=== PATIENT | male | born 1940 | race African-American/Black ===

== ENCOUNTER 2018-06-30 15:12 | Inpatient (IN) | payer MEDICARE ==
[~2018-06-30] VITALS: Ht 167.6 cm; Wt 67.6 kg
[2018-06-30] MEDS ORDERED: LORAZEPAM 2MG/ML CPJ ONE (15:24)
[2018-06-30 15:44] LABS: BASOPHILS % 0.3 % (0.0-2.0); EOSINOPHILS % 0.2 % (0.0-5.0); HEMATOCRIT. 43.5 % (42.0-52.0); HEMOGLOBIN. 14.7 g/dL (14.0-18.0); LYMPHOCYTES % 15.1 % (20.0-50.0); MEAN CORPUSCULAR HEMOGLOBIN 31.7 pg (28.0-32.0); MEAN PLATELET VOLUME 7.7 fl (7.4-10.4); MONOCYTES % 11.8 % (2.0-8.0); NEUTROPHILS % 72.6 % (40.0-76.0); PLATELET 219 x1000/uL (130-400); RED BLOOD CELL COUNT 4.62 mill/uL (4.7-6.1)
[2018-06-30] MEDS ORDERED: LORAZEPAM 2MG/ML CPJ IV ONE (15:45)
[2018-06-30] MEDS ORDERED: LEVETIRACETAM 1000MG/100ML 100 ML IV ONE (15:45)
[2018-06-30 15:50] LABS: CHLORIDE 111 mEq/L (98-107)
[2018-06-30 15:54] LABS: ETHANOL BLOOD < 10 mg/dL
[2018-06-30 15:57] LABS: INR 1.1; LDL CHOLESTEROL 109 mg/dL (5-100)
[2018-06-30] MEDS ORDERED: HYDR12.54 MT (16:50)
[2018-06-30] MEDS ORDERED: AMLO10TA80 MT (16:50)
[2018-06-30] MEDS ORDERED: SIMV20TA6 MT (16:50)
[2018-06-30] MEDS ORDERED: HUM100IN SQ (16:50)
[2018-06-30] MEDS ORDERED: LISI40TA4 MT (16:50)
[2018-06-30] MEDS ORDERED: IOHEXOL-350 100 ML BOTTLE ONE (16:54)
[2018-06-30] MEDS ORDERED: ASPIRIN 300MG SUPP PR ONE (18:15)
[2018-06-30] MEDS ORDERED: SODIUM CHLORIDE 0.9% 1,000 ML IV NR (19:15)
[2018-06-30] MEDS ORDERED: HYDROCODONE/ACETAMINOPHEN 5/325MG TABLET PO PRN (20:30)
[2018-06-30] MEDS ORDERED: ONDANSETRON HCL 4MG/2ML INJ IV PRN (20:30)
[2018-06-30] MEDS ORDERED: ACETAMINOPHEN 325MG TABLET PO PRN (20:30)
[2018-06-30 21:16] LABS: CLARITY URINE CLEAR (CLEAR); COLOR URINE YELLOW (YELLOW); KETONES URINE TRACE (NEGATIVE); LEUKOCYTE ESTERASE URINE NEGATIVE (NEGATIVE); NITRITE URINE NEGATIVE (NEGATIVE); OCCULT BLOOD URINE NEGATIVE (NEGATIVE); PROTEIN URINE TRACE (NEGATIVE)
[2018-06-30 21:25] LABS: *AMPHETAMINES SCREEN URINE NEGATIVE (NEGATIVE); *BARBITURATES SCREEN URINE NEGATIVE (NEGATIVE); *BENZODIAZEPINES SCREEN URINE NEGATIVE (NEGATIVE)
[2018-06-30 21:26] LABS: *COCAINE SCREEN URINE NEGATIVE (NEGATIVE); CANNABINOID URINE SCREEN NEGATIVE (NEGATIVE); METHADONE URINE SCREEN NEGATIVE (NEGATIVE); OPIATES URINE SCREEN NEGATIVE (NEGATIVE); PHENCYCLIDINE URINE SCREEN NEGATIVE (NEGATIVE)
[2018-07-01] VITALS (7 sets, daily range): BP systolic 168–189; BP diastolic 65–81
[2018-07-01 00:34] LABS: CREATINE KINASE 481 IU/L (39-308)
[2018-07-01] MEDS: DEXT 5%/0.45% NACL 1000ML 1,000 ML IV SCH ×2 (04:28→18:01)
[2018-07-01] MEDS: LORAZEPAM 2MG/ML CPJ IV PRN ×2 (05:18→15:17)
[2018-07-01 07:04] LABS: BASOPHILS % 0.3 % (0.0-2.0); EOSINOPHILS % 0.4 % (0.0-5.0); HEMATOCRIT. 38.8 % (42.0-52.0); HEMOGLOBIN. 13.2 g/dL (14.0-18.0); LYMPHOCYTES % 12.6 % (20.0-50.0); MEAN CORPUSCULAR VOLUME 93.8 fL (80.0-94.0); MEAN PLATELET VOLUME 7.8 fl (7.4-10.4); MONOCYTES % 12.7 % (2.0-8.0); PLATELET 175 x1000/uL (130-400); RED BLOOD CELL COUNT 4.13 mill/uL (4.7-6.1); RED CELL DISTRIBUTION WIDTH 13.7 % (11.6-14.6)
[2018-07-01 08:02] LABS: CHLORIDE 113 mEq/L (98-107)
[2018-07-01 08:22] LABS: LDL CHOLESTEROL 101 mg/dL (5-100)
[2018-07-01 08:23] LABS: CREATINE KINASE 392 IU/L (39-308); HDL CHOLESTEROL 48 mg/dL (40-59)
[2018-07-01] MEDS: LEVETIRACETAM 500 MG in SODIUM CHLORIDE 0.9% 100 ML IV SCH ×2 (12:56→22:04)
[2018-07-01] MEDS ORDERED: DEXTROSE 50% WATER 50ML SYRINGE IV PRN (14:15)
[2018-07-01] MEDS: BLOOD SUGAR DIAGNOSTIC STRIP TEST SCH ×2 (16:45→21:00)
[2018-07-01] MEDS: INSULIN LISPRO 100 UNITS/ML SUBCUT SCH ×2 (17:15→21:00)
[2018-07-01] MEDS: ENOXAPARIN 30MG/0.3ML SYR SUBCUT SCH (22:04)
[2018-07-02] VITALS: BP 179/94
[2018-07-02 04:00] VITALS: BP 151/87
[2018-07-02] MEDS: BLOOD SUGAR DIAGNOSTIC STRIP TEST SCH ×4 (07:13→21:00)
[2018-07-02] MEDS: INSULIN LISPRO 100 UNITS/ML SUBCUT SCH ×4 (07:13→21:00)
[2018-07-02 08:00] VITALS: BP 200/88
[2018-07-02 09:44] LABS: VITAMIN B12 SERUM 524 pg/mL (211-911)
[2018-07-02] MEDS ORDERED: CLONIDINE HCL 0.1MG/24HR PATCH TD SCH (10:00)
[2018-07-02] MEDS: LEVETIRACETAM 500 MG in SODIUM CHLORIDE 0.9% 100 ML IV SCH ×2 (10:06→23:13)
[2018-07-02 12:00] VITALS: BP_SYST 107; BP_SYST 197; BP_DIAS 53; BP_DIAS 80
[2018-07-02] MEDS: HYDRALAZINE 20MG/ML VIAL IV PRN ×2 (12:52→19:14)
[2018-07-02] MEDS: DEXT 5%/0.45% NACL 1000ML 1,000 ML IV SCH ×2 (12:59→23:02)
[2018-07-02 16:00] VITALS: BP 172/81
[2018-07-02] MEDS: ENALAPRIL 1.25MG/ML VIAL 1ML IV SCH ×3 (17:04→23:34)
[2018-07-02 20:00] VITALS: BP 178/74
[2018-07-02] MEDS: ENOXAPARIN 30MG/0.3ML SYR SUBCUT SCH (23:35)
[2018-07-03] VITALS: BP 186/88
[2018-07-03 04:00] VITALS: BP 182/80
[2018-07-03] MEDS: ENALAPRIL 1.25MG/ML VIAL 1ML IV SCH ×3 (05:38→18:58)
[2018-07-03] MEDS: BLOOD SUGAR DIAGNOSTIC STRIP TEST SCH ×4 (05:40→21:32)
[2018-07-03] MEDS: INSULIN LISPRO 100 UNITS/ML SUBCUT SCH ×4 (05:45→21:47)
[2018-07-03] MEDS: LEVETIRACETAM 500 MG in SODIUM CHLORIDE 0.9% 100 ML IV SCH ×2 (10:10→21:31)
[2018-07-03] MEDS: HYDRALAZINE 20MG/ML VIAL IV PRN ×3 (10:11→22:42)
[2018-07-03 12:00] VITALS: BP 166/71
[2018-07-03] MEDS: ASPIRIN 81MG TABLET PO SCH (15:00)
[2018-07-03] MEDS: FAMOTIDINE 20MG TABLET PO SCH (15:10)
[2018-07-03 16:00] VITALS: BP 182/80
[2018-07-03] MEDS: DEXT 5%/0.45% NACL 1000ML 1,000 ML IV SCH (16:36)
[2018-07-03 20:00] VITALS: BP 178/71
[2018-07-03] MEDS: ENOXAPARIN 30MG/0.3ML SYR SUBCUT SCH (21:32)
[2018-07-04] VITALS: BP 161/64
[2018-07-04] MEDS: ENALAPRIL 1.25MG/ML VIAL 1ML IV SCH ×3 (00:53→13:01)
[2018-07-04 04:00] VITALS: BP 181/77
[2018-07-04] MEDS: INSULIN LISPRO 100 UNITS/ML SUBCUT SCH ×4 (06:29→21:00)
[2018-07-04] MEDS: BLOOD SUGAR DIAGNOSTIC STRIP TEST SCH ×4 (06:30→21:27)
[2018-07-04 07:49] LABS: BASOPHILS % 0.4 % (0.0-2.0); EOSINOPHILS % 0.2 % (0.0-5.0); HEMATOCRIT. 37.9 % (42.0-52.0); HEMOGLOBIN. 13.1 g/dL (14.0-18.0); LYMPHOCYTES % 9.5 % (20.0-50.0); MEAN CORPUSCULAR HEMOGLOBIN 32.1 pg (28.0-32.0); MEAN CORPUSCULAR VOLUME 92.5 fL (80.0-94.0); MEAN PLATELET VOLUME 7.3 fl (7.4-10.4); MONOCYTES % 11.1 % (2.0-8.0); NEUTROPHILS % 78.8 % (40.0-76.0); PLATELET 190 x1000/uL (130-400); RED CELL DISTRIBUTION WIDTH 13.8 % (11.6-14.6)
[2018-07-04 08:00] VITALS: BP 192/79
[2018-07-04 08:13] LABS: CHLORIDE 108 mEq/L (98-107)
[2018-07-04] MEDS: FAMOTIDINE 20MG TABLET PO SCH (09:33)
[2018-07-04] MEDS: LEVETIRACETAM 500 MG in SODIUM CHLORIDE 0.9% 100 ML IV SCH ×2 (09:33→21:44)
[2018-07-04] MEDS: ASPIRIN 81MG TABLET PO SCH (09:33)
[2018-07-04] MEDS: HYDRALAZINE 20MG/ML VIAL IV PRN (09:37)
[2018-07-04 12:00] VITALS: BP 187/74
[2018-07-04] MEDS: DEXT 5%/0.45% NACL 1000ML 1,000 ML IV SCH (13:03)
[2018-07-04 14:16] LABS: BG BASE EXCESS 1.7 mmol/L (-2.0-2.0); BG CARBOXYHEMOGLOBIN 0.7 % (0.5-1.5); BG DEOXYHEMOGLOBIN 3.1 % (0.0-5.0); BG FRACTION INSPIRED OXYGEN 21; BG HCO3 ACT 24.8 mmol/L (22.0-26.0); BG METHEMOGLOBIN 0.3 % (0.0-1.5); BG OXYGEN SATURATION 96.9 % (92.0-98.5); BG OXYHEMOGLOBIN 95.9 % (94.0-97.0); BG PCO2 34.6 mmHg (35.0-45.0); BG PH 7.474 (7.350-7.450); BG PO2 93.3 mmHg (75.0-100.0); BG SAMPLE SITE RIGHT BRACHIAL; BG TOTAL HEMOGLOBIN 13.7 g/dL (12.0-18.0); BG VENT MODE ROOM AIR
[2018-07-04 16:00] VITALS: BP 178/72
[2018-07-04] MEDS ORDERED: CEFAZOLIN 1000MG PREMIX 50 ML IV PRN (16:53)
[2018-07-04] MEDS: CLONIDINE 0.1MG TABLET PO SCH ×2 (19:36→21:45)
[2018-07-04 20:00] VITALS: BP 189/85
[2018-07-04] MEDS: PANTOPRAZOLE SODIUM 40 MG/VIAL IV SCH (21:46)
[2018-07-05] VITALS (7 sets, daily range): BP systolic 114–188; BP diastolic 71–88
[2018-07-05] MEDS: CLONIDINE 0.1MG TABLET PO SCH ×3 (05:47→21:57)
[2018-07-05] MEDS: BLOOD SUGAR DIAGNOSTIC STRIP TEST SCH ×4 (05:48→21:56)
[2018-07-05] MEDS: INSULIN LISPRO 100 UNITS/ML SUBCUT SCH ×4 (06:52→21:00)
[2018-07-05 07:12] LABS: INR 1.1; PARTIAL THROMBOPLASTIN TIME 42.3 sec (23.4-31.0); PROTHROMBIN TIME 10.7 sec (9.1-11.1)
[2018-07-05 07:40] LABS: BASOPHILS % 0.3 % (0.0-2.0); EOSINOPHILS % 0.8 % (0.0-5.0); HEMATOCRIT. 38.1 % (42.0-52.0); HEMOGLOBIN. 13.3 g/dL (14.0-18.0); MEAN PLATELET VOLUME 8.1 fl (7.4-10.4); MONOCYTES % 11.4 % (2.0-8.0); NEUTROPHILS % 76.5 % (40.0-76.0); PLATELET 188 x1000/uL (130-400); RED BLOOD CELL COUNT 4.14 mill/uL (4.7-6.1); RED CELL DISTRIBUTION WIDTH 13.6 % (11.6-14.6)
[2018-07-05] MEDS: PANTOPRAZOLE SODIUM 40 MG/VIAL IV SCH ×2 (09:17→21:34)
[2018-07-05] MEDS: LEVETIRACETAM 500 MG in SODIUM CHLORIDE 0.9% 100 ML IV SCH ×2 (09:17→21:56)
[2018-07-05] MEDS: FAMOTIDINE 20MG TABLET PO SCH (09:17)
[2018-07-05 11:52] LABS: CHLORIDE 107 mEq/L (98-107)
[2018-07-05 13:12] LABS: VITAMIN B12 SERUM 463 pg/mL (211-911)
[2018-07-05] MEDS ORDERED: LACTULOSE 20G/30ML UDC PO NR (15:00)
[2018-07-05] MEDS: ATORVASTATIN CALCIUM 10MG TABLET PO SCH (21:00)
[2018-07-05] MEDS: HYDRALAZINE 20MG/ML VIAL IV PRN (21:34)
[2018-07-05] MEDS: DEXT 5%/0.45% NACL 1000ML 1,000 ML IV SCH (21:35)
[2018-07-06] VITALS (8 sets, daily range): BP systolic 140–183; BP diastolic 67–81
[2018-07-06] MEDS: HYDRALAZINE 20MG/ML VIAL IV PRN ×2 (04:34→21:01)
[2018-07-06] MEDS: CLONIDINE 0.1MG TABLET PO SCH ×3 (06:00→22:00)
[2018-07-06 06:22] LABS: HEMATOCRIT 39.4 % (42.0-52.0); HEMOGLOBIN 13.6 g/dL (14.0-18.0); MEAN CORPUSCULAR HEMOGLOBIN 32.1 pg (28.0-32.0); MEAN CORPUSCULAR VOLUME 92.9 fL (80.0-94.0); PLATELET 184 x1000/uL (130-400); RED BLOOD CELL COUNT 4.24 mill/uL (4.7-6.1); RED CELL DISTRIBUTION WIDTH 13.6 % (11.6-14.6)
[2018-07-06] MEDS: BLOOD SUGAR DIAGNOSTIC STRIP TEST SCH ×4 (06:28→21:07)
[2018-07-06] MEDS: DEXT 5%/0.45% NACL 1000ML 1,000 ML IV SCH (06:28)
[2018-07-06] MEDS: INSULIN LISPRO 100 UNITS/ML SUBCUT SCH ×4 (06:28→21:00)
[2018-07-06 06:54] LABS: CHLORIDE 108 mEq/L (98-107)
[2018-07-06] MEDS: FAMOTIDINE 20MG TABLET PO SCH (09:00)
[2018-07-06] MEDS: LEVETIRACETAM 500 MG in SODIUM CHLORIDE 0.9% 100 ML IV SCH ×2 (09:28→21:19)
[2018-07-06] MEDS ORDERED: CEFAZOLIN 1000MG PREMIX 50 ML IV PRN (13:00)
[2018-07-06] MEDS ORDERED: SIMETHICONE 40 MG/0.6 ML 30ML ONE (16:18)
[2018-07-06] MEDS ORDERED: SODIUM CHLORIDE 0.9% 10ML VIAL ONE (16:18)
[2018-07-06] MEDS ORDERED: MIDAZOLAM HCL 5 MG/5 ML VIAL ONE ×2 (16:46→16:47)
[2018-07-06] MEDS ORDERED: CEFAZOLIN 1000MG PREMIX 50 ML IV ONE (16:46)
[2018-07-06] MEDS ORDERED: FENTANYL CITRATE/PF 50MCG/ML 2ML VIAL ONE (16:47)
[2018-07-06] MEDS ORDERED: MIDAZOLAM HCL 5 MG/5 ML VIAL IV PRN (16:53)
[2018-07-06] MEDS ORDERED: HYDRALAZINE 20MG/ML VIAL IV NR (17:30)
[2018-07-06] MEDS: ATORVASTATIN CALCIUM 10MG TABLET PO SCH (21:00)
[2018-07-07] VITALS: BP 141/89
[2018-07-07] MEDS ORDERED: DIGOXIN 500MCG/2ML AMP IV NR (00:15)
[2018-07-07 04:00] VITALS: BP 164/72
[2018-07-07] MEDS ORDERED: LORAZEPAM 2MG/ML CPJ IV PRN ×2 (05:00→05:45)
[2018-07-07] MEDS ORDERED: ACETAMINOPHEN 650MG SUPP PR PRN ×2 (05:06→13:00)
[2018-07-07] MEDS: CLONIDINE 0.1MG TABLET PO SCH (06:00)
[2018-07-07] MEDS: BLOOD SUGAR DIAGNOSTIC STRIP TEST SCH ×4 (06:21→21:00)
[2018-07-07] MEDS: INSULIN LISPRO 100 UNITS/ML SUBCUT SCH ×4 (06:29→22:40)
[2018-07-07 07:22] LABS: HEMATOCRIT 38.2 % (42.0-52.0); HEMOGLOBIN 13.1 g/dL (14.0-18.0); MEAN CORPUSCULAR HEMOGLOBIN 31.7 pg (28.0-32.0); MEAN CORPUSCULAR VOLUME 92.1 fL (80.0-94.0); PLATELET 196 x1000/uL (130-400); RED BLOOD CELL COUNT 4.14 mill/uL (4.7-6.1); RED CELL DISTRIBUTION WIDTH 13.4 % (11.6-14.6)
[2018-07-07 08:00] VITALS: BP 177/90
[2018-07-07 08:31] LABS: CHLORIDE 109 mEq/L (98-107)
[2018-07-07] MEDS ORDERED: LEVETIRACETAM 500MG/5ML CUP PO SCH (09:00)
[2018-07-07] MEDS: LEVETIRACETAM 750 MG in SODIUM CHLORIDE 0.9% 100 ML IV SCH ×2 (09:38→22:28)
[2018-07-07] MEDS: FAMOTIDINE 20MG TABLET PO SCH (09:38)
[2018-07-07] MEDS ORDERED: SKIN ADHESIVE 0.7 GM EA TOP ONE (12:00)
[2018-07-07] MEDS ORDERED: BUPIVACAINE HCL/PF 0.5% (5MG/ML) 10ML ONE (12:01)
[2018-07-07] MEDS ORDERED: BACITRACIN 50,000 UNITS/VIAL ONE (12:01)
[2018-07-07] MEDS ORDERED: FENTANYL CITRATE/PF 50MCG/ML 2ML VIAL ONE (12:30)
[2018-07-07] MEDS ORDERED: ROCURONIUM BROMIDE 10MG/ML VIAL 5ML IV ONE (12:32)
[2018-07-07] MEDS ORDERED: PROPOFOL 200MG/20ML VIAL IV ONE (12:33)
[2018-07-07] MEDS ORDERED: CEFAZOLIN SODIUM 1000MG/VIAL ONE (13:33)
[2018-07-07] MEDS ORDERED: KETOROLAC 30MG/ML VIAL ONE (13:34)
[2018-07-07] MEDS ORDERED: NEOSTIGMINE METHYLSULFATE 1MG/ML 10 ML VIAL ONE (14:19)
[2018-07-07] MEDS ORDERED: GLYCOPYRROLATE 0.2 MG/ML 2ML VIAL ONE (14:19)
[2018-07-07 18:44] LABS: BG BASE EXCESS -2.9 mmol/L (-2.0-2.0); BG CARBOXYHEMOGLOBIN 0.4 % (0.5-1.5); BG DEOXYHEMOGLOBIN 1.1 % (0.0-5.0); BG FRACTION INSPIRED OXYGEN 50; BG HCO3 ACT 18.7 mmol/L (22.0-26.0); BG METHEMOGLOBIN 0.5 % (0.0-1.5); BG OXYGEN SATURATION 98.9 % (92.0-98.5); BG PCO2 25.7 mmHg (35.0-45.0); BG PO2 170.2 mmHg (75.0-100.0); BG SAMPLE SITE RIGHT RADIAL; BG TOTAL HEMOGLOBIN 15.7 g/dL (12.0-18.0); BG VENT MODE MASK - SIMPLE
[2018-07-07 20:20] VITALS: BP 121/71
[2018-07-07] MEDS ORDERED: FAMOTIDINE 20MG/2ML VIAL IV SCH (21:00)
[2018-07-07] MEDS: IPRATROPIUM/ALBUTEROL 0.5-3(2.5)MG/3ML NEB HHN SCH (21:56)
[2018-07-07 22:00] VITALS: BP 130/72
[2018-07-07] MEDS: DEXT 5%/0.45% NACL KCL 20MEQ/L 1,000 ML IV SCH ×2 (22:28→22:41)
[2018-07-07] MEDS: PIPERACILLIN/TAZ 3.375G PREMIX 50 ML IV SCH (22:29)
[2018-07-07] MEDS: ATORVASTATIN CALCIUM 10MG TABLET PO SCH (22:40)
[2018-07-07] MEDS: FAMOTIDINE 20MG/2ML VIAL IV SCH (22:40)
[2018-07-08] VITALS (9 sets, daily range): BP systolic 92–164; BP diastolic 44–88
[2018-07-08] MEDS: IPRATROPIUM/ALBUTEROL 0.5-3(2.5)MG/3ML NEB HHN SCH ×6 (00:31→20:28)
[2018-07-08] MEDS: MORPHINE SULFATE 4 MG/ML CPJ (NOT FOR IM USE) IV PRN (02:45)
[2018-07-08] MEDS: PIPERACILLIN/TAZ 3.375G PREMIX 50 ML IV SCH ×4 (03:55→21:17)
[2018-07-08] MEDS: CLONIDINE 0.1MG TABLET PO SCH ×3 (07:04→22:19)
[2018-07-08 07:43] LABS: HEMATOCRIT 41.5 % (42.0-52.0); HEMOGLOBIN 14.2 g/dL (14.0-18.0); MEAN CORPUSCULAR HEMOGLOBIN 32.1 pg (28.0-32.0); MEAN CORPUSCULAR VOLUME 93.8 fL (80.0-94.0); PLATELET 215 x1000/uL (130-400); RED BLOOD CELL COUNT 4.42 mill/uL (4.7-6.1); RED CELL DISTRIBUTION WIDTH 13.1 % (11.6-14.6)
[2018-07-08] MEDS: BLOOD SUGAR DIAGNOSTIC STRIP TEST SCH ×3 (07:51→17:41)
[2018-07-08] MEDS: INSULIN LISPRO 100 UNITS/ML SUBCUT SCH ×3 (08:57→17:54)
[2018-07-08] MEDS: ZINC SULFATE 220 MG ( 50 ) CAPSULE GT SCH (09:17)
[2018-07-08] MEDS: MULTIVITAMINS,THER W-MINERALS TABLET GT SCH (09:17)
[2018-07-08] MEDS: LEVETIRACETAM 750 MG in SODIUM CHLORIDE 0.9% 100 ML IV SCH ×2 (09:17→22:22)
[2018-07-08] MEDS: DEXT 5%/0.45% NACL KCL 20MEQ/L 1,000 ML IV SCH (09:18)
[2018-07-08] MEDS: ASCORBIC ACID 250 MG TABLET GT SCH ×2 (09:18→17:54)
[2018-07-08] MEDS ORDERED: SODIUM CHLORIDE 0.9% 250 ML IV ONE (10:30)
[2018-07-08 16:54] LABS: CHLORIDE 109 mEq/L (98-107)
[2018-07-08] MEDS: ATORVASTATIN CALCIUM 10MG TABLET PO SCH (21:17)
[2018-07-08] MEDS: FAMOTIDINE 20MG/2ML VIAL IV SCH (21:17)
[2018-07-09] VITALS (9 sets, daily range): BP systolic 137–181; BP diastolic 66–91
[2018-07-09] MEDS: IPRATROPIUM/ALBUTEROL 0.5-3(2.5)MG/3ML NEB HHN SCH ×6 (00:11→21:13)
[2018-07-09] MEDS: PIPERACILLIN/TAZ 3.375G PREMIX 50 ML IV SCH ×4 (01:17→20:50)
[2018-07-09] MEDS: INSULIN LISPRO 100 UNITS/ML SUBCUT SCH ×4 (01:17→19:12)
[2018-07-09] MEDS: DEXT 5%/0.45% NACL KCL 20MEQ/L 1,000 ML IV SCH ×3 (03:06→16:00)
[2018-07-09 05:48] LABS: HEMOGLOBIN 11.9 g/dL (14.0-18.0); MEAN CORPUSCULAR VOLUME 93.9 fL (80.0-94.0); PLATELET 193 x1000/uL (130-400); RED BLOOD CELL COUNT 3.73 mill/uL (4.7-6.1); RED CELL DISTRIBUTION WIDTH 13.7 % (11.6-14.6)
[2018-07-09 06:04] LABS: CHLORIDE 109 mEq/L (98-107)
[2018-07-09] MEDS: CLONIDINE 0.1MG TABLET PO SCH ×3 (06:12→21:08)
[2018-07-09] MEDS: BLOOD SUGAR DIAGNOSTIC STRIP TEST SCH ×4 (06:12→18:00)
[2018-07-09] MEDS: ASCORBIC ACID 250 MG TABLET GT SCH ×2 (09:25→17:39)
[2018-07-09] MEDS: ZINC SULFATE 220 MG ( 50 ) CAPSULE GT SCH (09:25)
[2018-07-09] MEDS: MULTIVITAMINS,THER W-MINERALS TABLET GT SCH (09:25)
[2018-07-09] MEDS: LEVETIRACETAM 750 MG in SODIUM CHLORIDE 0.9% 100 ML IV SCH ×2 (09:26→20:50)
[2018-07-09] MEDS ORDERED: KCL 20MEQ/100ML PREMIX 100 ML IV NR (16:30)
[2018-07-09] MEDS: METOCLOPRAMIDE HCL 10MG/2ML VIAL IV SCH (17:39)
[2018-07-09] MEDS: HYDRALAZINE 20MG/ML VIAL IV PRN (19:22)
[2018-07-09] MEDS: FAMOTIDINE 20MG/2ML VIAL IV SCH (20:49)
[2018-07-09] MEDS: ATORVASTATIN CALCIUM 10MG TABLET PO SCH (20:49)
[2018-07-10] VITALS (12 sets, daily range): BP systolic 106–193; BP diastolic 31–100
[2018-07-10] MEDS: BLOOD SUGAR DIAGNOSTIC STRIP TEST SCH ×4 (00:57→17:55)
[2018-07-10] MEDS: PIPERACILLIN/TAZ 3.375G PREMIX 50 ML IV SCH ×4 (01:01→20:33)
[2018-07-10] MEDS: METOCLOPRAMIDE HCL 10MG/2ML VIAL IV SCH ×4 (01:01→17:55)
[2018-07-10] MEDS: DEXT 5%/0.45% NACL KCL 20MEQ/L 1,000 ML IV SCH ×3 (01:02→22:22)
[2018-07-10] MEDS: IPRATROPIUM/ALBUTEROL 0.5-3(2.5)MG/3ML NEB HHN SCH ×6 (01:40→20:31)
[2018-07-10] MEDS: MORPHINE SULFATE 4 MG/ML CPJ (NOT FOR IM USE) IV PRN (02:46)
[2018-07-10] MEDS: CLONIDINE 0.1MG TABLET PO SCH ×3 (06:13→22:22)
[2018-07-10] MEDS: INSULIN LISPRO 100 UNITS/ML SUBCUT SCH ×4 (06:14→19:06)
[2018-07-10] MEDS: ASCORBIC ACID 250 MG TABLET GT SCH ×2 (09:49→17:55)
[2018-07-10] MEDS: ZINC SULFATE 220 MG ( 50 ) CAPSULE GT SCH (09:49)
[2018-07-10] MEDS: LEVETIRACETAM 750 MG in SODIUM CHLORIDE 0.9% 100 ML IV SCH (09:49)
[2018-07-10] MEDS: MULTIVITAMINS,THER W-MINERALS TABLET GT SCH (09:49)
[2018-07-10] MEDS: ATORVASTATIN CALCIUM 10MG TABLET PO SCH (20:34)
[2018-07-10] MEDS: HYDRALAZINE 20MG/ML VIAL IV PRN (20:34)
[2018-07-10] MEDS: FAMOTIDINE 20MG/2ML VIAL IV SCH (20:34)
[2018-07-10] MEDS: LEVETIRACETAM 500MG/5ML CUP PO SCH (20:34)
[2018-07-11] VITALS (12 sets, daily range): BP systolic 98–173; BP diastolic 52–117
[2018-07-11] MEDS: BLOOD SUGAR DIAGNOSTIC STRIP TEST SCH ×4 (00:12→17:55)
[2018-07-11] MEDS: METOCLOPRAMIDE HCL 10MG/2ML VIAL IV SCH ×4 (00:16→18:05)
[2018-07-11] MEDS: IPRATROPIUM/ALBUTEROL 0.5-3(2.5)MG/3ML NEB HHN SCH ×6 (00:26→20:55)
[2018-07-11] MEDS: PIPERACILLIN/TAZ 3.375G PREMIX 50 ML IV SCH ×2 (01:47→10:32)
[2018-07-11] MEDS: CLONIDINE 0.1MG TABLET PO SCH ×3 (05:28→22:23)
[2018-07-11] MEDS: INSULIN LISPRO 100 UNITS/ML SUBCUT SCH ×4 (05:29→18:11)
[2018-07-11] MEDS: ZINC SULFATE 220 MG ( 50 ) CAPSULE GT SCH (09:56)
[2018-07-11] MEDS: ASCORBIC ACID 250 MG TABLET GT SCH ×2 (09:56→17:48)
[2018-07-11] MEDS: DEXT 5%/0.45% NACL KCL 20MEQ/L 1,000 ML IV SCH (09:57)
[2018-07-11] MEDS: HYDRALAZINE 20MG/ML VIAL IV PRN (10:00)
[2018-07-11] MEDS: MULTIVITAMINS,THER W-MINERALS TABLET GT SCH (10:46)
[2018-07-11] MEDS: LEVETIRACETAM 500MG/5ML CUP PO SCH ×2 (10:46→22:22)
[2018-07-11] MEDS: LEVOFLOXACIN 500MG PREMIX 100 ML IV SCH (14:36)
[2018-07-11 19:50] LABS: HEMATOCRIT. 39.3 % (42.0-52.0); HEMOGLOBIN. 13.4 g/dL (14.0-18.0); MEAN CORPUSCULAR VOLUME 93.7 fL (80.0-94.0); MEAN PLATELET VOLUME 7.6 fl (7.4-10.4); PLATELET 359 x1000/uL (130-400); RED BLOOD CELL COUNT 4.19 mill/uL (4.7-6.1); RED CELL DISTRIBUTION WIDTH 13.8 % (11.6-14.6)
[2018-07-11 19:55] LABS: CHLORIDE 103 mEq/L (98-107)
[2018-07-11 20:13] LABS: PLATELET ESTIMATE NORMAL
[2018-07-11] MEDS: ATORVASTATIN CALCIUM 10MG TABLET PO SCH (22:22)
[2018-07-11] MEDS: FAMOTIDINE 20MG/2ML VIAL IV SCH (22:22)
[2018-07-12] VITALS (7 sets, daily range): BP systolic 149–180; BP diastolic 79–103
[2018-07-12] MEDS: METOCLOPRAMIDE HCL 10MG/2ML VIAL IV SCH ×4 (00:59→18:58)
[2018-07-12] MEDS: INSULIN LISPRO 100 UNITS/ML SUBCUT SCH ×4 (01:00→18:55)
[2018-07-12] MEDS: IPRATROPIUM/ALBUTEROL 0.5-3(2.5)MG/3ML NEB HHN SCH ×3 (01:01→04:35)
[2018-07-12] MEDS: BLOOD SUGAR DIAGNOSTIC STRIP TEST SCH ×4 (05:43→18:47)
[2018-07-12] MEDS: CLONIDINE 0.1MG TABLET PO SCH ×2 (05:49→16:20)
[2018-07-12] MEDS: ASCORBIC ACID 250 MG TABLET GT SCH ×2 (10:21→19:02)
[2018-07-12] MEDS: ZINC SULFATE 220 MG ( 50 ) CAPSULE GT SCH (10:21)
[2018-07-12] MEDS: LEVETIRACETAM 500MG/5ML CUP PO SCH ×2 (10:21→20:24)
[2018-07-12] MEDS: MULTIVITAMINS,THER W-MINERALS TABLET GT SCH (10:21)
[2018-07-12] MEDS: HYDRALAZINE 20MG/ML VIAL IV PRN ×2 (10:31→19:06)
[2018-07-12 12:10] LABS: BG BASE EXCESS -5.8 mmol/L (-2.0-2.0); BG CARBOXYHEMOGLOBIN 0.8 % (0.5-1.5); BG DEOXYHEMOGLOBIN 4.8 % (0.0-5.0); BG HCO3 ACT 14.5 mmol/L (22.0-26.0); BG METHEMOGLOBIN 0.2 % (0.0-1.5); BG OXYGEN SATURATION 95.2 % (92.0-98.5); BG OXYHEMOGLOBIN 94.2 % (94.0-97.0); BG PCO2 18.7 mmHg (35.0-45.0); BG PH 7.508 (7.350-7.450); BG PO2 72.3 mmHg (75.0-100.0); BG SAMPLE SITE RIGHT BRACHIAL; BG TOTAL HEMOGLOBIN 14.1 g/dL (12.0-18.0); BG VENT MODE ROOM AIR
[2018-07-12 15:21] LABS: HEMATOCRIT 37.7 % (42.0-52.0); HEMOGLOBIN 13.2 g/dL (14.0-18.0); MEAN CORPUSCULAR HEMOGLOBIN 32.2 pg (28.0-32.0); MEAN CORPUSCULAR VOLUME 91.9 fL (80.0-94.0); PLATELET 353 x1000/uL (130-400); RED CELL DISTRIBUTION WIDTH 13.9 % (11.6-14.6)
[2018-07-12 15:25] LABS: CHLORIDE 104 mEq/L (98-107)
[2018-07-12] MEDS ORDERED: DEXT 5%/0.45% NACL 1000ML 1,000 ML IV ONE (15:30)
[2018-07-12] MEDS: LEVOFLOXACIN 500MG PREMIX 100 ML IV SCH (16:20)
[2018-07-12] MEDS: FAMOTIDINE 20MG/2ML VIAL IV SCH (20:22)
[2018-07-12] MEDS: ATORVASTATIN CALCIUM 10MG TABLET PO SCH (20:22)
[2018-07-12] MEDS: PIPERACILLIN/TAZ 3.375G PREMIX 50 ML IV SCH (20:23)
[2018-07-13] VITALS: BP 150/60
[2018-07-13] MEDS: METOCLOPRAMIDE HCL 10MG/2ML VIAL IV SCH ×5 (00:05→23:48)
[2018-07-13] MEDS: CLONIDINE 0.1MG TABLET PO SCH ×4 (00:06→21:37)
[2018-07-13] MEDS: BLOOD SUGAR DIAGNOSTIC STRIP TEST SCH ×5 (00:13→21:37)
[2018-07-13] MEDS ORDERED: DILTIAZEM HCL 5MG/ML 5ML VIAL IV SCH (00:57)
[2018-07-13] MEDS ORDERED: DIGOXIN 500MCG/2ML AMP IV SCH ×3 (00:58→03:00)
[2018-07-13] MEDS: DEXT 5%/0.9% NACL 1,000 ML IV SCH ×2 (00:59→11:42)
[2018-07-13] MEDS: PIPERACILLIN/TAZ 3.375G PREMIX 50 ML IV SCH ×4 (01:23→21:29)
[2018-07-13 04:00] VITALS: BP 132/80
[2018-07-13] MEDS: IPRATROPIUM/ALBUTEROL 0.5-3(2.5)MG/3ML NEB HHN SCH ×5 (04:50→20:00)
[2018-07-13] MEDS: INSULIN LISPRO 100 UNITS/ML SUBCUT SCH ×5 (06:10→21:38)
[2018-07-13 06:36] LABS: HEMATOCRIT 36.5 % (42.0-52.0); HEMOGLOBIN 12.6 g/dL (14.0-18.0); MEAN CORPUSCULAR HEMOGLOBIN 31.9 pg (28.0-32.0); MEAN CORPUSCULAR VOLUME 92.4 fL (80.0-94.0); PLATELET 352 x1000/uL (130-400); RED BLOOD CELL COUNT 3.95 mill/uL (4.7-6.1); RED CELL DISTRIBUTION WIDTH 13.7 % (11.6-14.6)
[2018-07-13 08:00] VITALS: BP 123/74
[2018-07-13] MEDS: ASCORBIC ACID 250 MG TABLET GT SCH ×2 (08:58→18:31)
[2018-07-13] MEDS: MULTIVITAMINS,THER W-MINERALS TABLET GT SCH (08:58)
[2018-07-13] MEDS: ZINC SULFATE 220 MG ( 50 ) CAPSULE GT SCH (08:58)
[2018-07-13] MEDS: LEVETIRACETAM 500MG/5ML CUP PO SCH ×2 (08:59→21:29)
[2018-07-13 10:36] LABS: BG BASE EXCESS -3.1 mmol/L (-2.0-2.0); BG CARBOXYHEMOGLOBIN 0.7 % (0.5-1.5); BG DEOXYHEMOGLOBIN 4.4 % (0.0-5.0); BG FRACTION INSPIRED OXYGEN 21; BG HCO3 ACT 18.4 mmol/L (22.0-26.0); BG METHEMOGLOBIN 0.2 % (0.0-1.5); BG OXYGEN SATURATION 95.6 % (92.0-98.5); BG OXYHEMOGLOBIN 94.7 % (94.0-97.0); BG PCO2 23.7 mmHg (35.0-45.0); BG PH 7.508 (7.350-7.450); BG PO2 75.5 mmHg (75.0-100.0); BG SAMPLE SITE RIGHT BRACHIAL; BG VENT MODE ROOM AIR
[2018-07-13] MEDS ORDERED: SODIUM CHLORIDE 0.9% 250 ML IV SCH (12:00)
[2018-07-13 12:02] VITALS: BP 131/71
[2018-07-13] MEDS ORDERED: IPRATROPIUM/ALBUTEROL 0.5-3(2.5)MG/3ML NEB HHN PRN (12:15)
[2018-07-13 16:19] VITALS: BP 117/68
[2018-07-13] MEDS: METHYLPREDNISOLONE SOD SUCC 40 MG/ML VIAL IV SCH (18:31)
[2018-07-13 20:00] VITALS: BP 179/81
[2018-07-13] MEDS: FAMOTIDINE 20MG/2ML VIAL IV SCH (21:29)
[2018-07-13] MEDS: ATORVASTATIN CALCIUM 10MG TABLET PO SCH (21:29)
[2018-07-13] MEDS: HYDRALAZINE 20MG/ML VIAL IV PRN (23:48)
[2018-07-14] VITALS (9 sets, daily range): BP systolic 146–203; BP diastolic 69–95
[2018-07-14] MEDS ORDERED: HYDRALAZINE 20MG/ML VIAL IV NR ×2 (02:00→16:45)
[2018-07-14] MEDS: PIPERACILLIN/TAZ 3.375G PREMIX 50 ML IV SCH ×4 (02:00→20:40)
[2018-07-14] MEDS: METHYLPREDNISOLONE SOD SUCC 40 MG/ML VIAL IV SCH ×2 (03:00→15:19)
[2018-07-14] MEDS: DEXT 5%/0.9% NACL 1,000 ML IV SCH ×2 (03:05→20:44)
[2018-07-14] MEDS: IPRATROPIUM/ALBUTEROL 0.5-3(2.5)MG/3ML NEB HHN SCH ×6 (04:00→20:21)
[2018-07-14] MEDS: CLONIDINE 0.1MG TABLET PO SCH ×3 (06:00→22:26)
[2018-07-14 07:12] LABS: CHLORIDE 111 mEq/L (98-107)
[2018-07-14 07:26] LABS: HEMOGLOBIN 11.8 g/dL (14.0-18.0); MEAN CORPUSCULAR HEMOGLOBIN 32.1 pg (28.0-32.0); MEAN CORPUSCULAR VOLUME 92.4 fL (80.0-94.0); PLATELET 366 x1000/uL (130-400); RED BLOOD CELL COUNT 3.68 mill/uL (4.7-6.1)
[2018-07-14] MEDS: BLOOD SUGAR DIAGNOSTIC STRIP TEST SCH ×4 (07:34→20:40)
[2018-07-14] MEDS: INSULIN LISPRO 100 UNITS/ML SUBCUT SCH ×4 (07:34→20:43)
[2018-07-14] MEDS: MULTIVITAMINS,THER W-MINERALS TABLET GT SCH (09:25)
[2018-07-14] MEDS: ASCORBIC ACID 250 MG TABLET GT SCH ×2 (09:25→17:52)
[2018-07-14] MEDS: METOCLOPRAMIDE HCL 10MG/2ML VIAL IV SCH ×3 (09:25→17:49)
[2018-07-14] MEDS: ZINC SULFATE 220 MG ( 50 ) CAPSULE GT SCH (09:26)
[2018-07-14] MEDS: LEVETIRACETAM 500MG/5ML CUP PO SCH (09:28)
[2018-07-14] MEDS: HYDRALAZINE 20MG/ML VIAL IV PRN (10:06)
[2018-07-14] MEDS ORDERED: METOPROLOL TARTRATE 5MG/5ML VIAL IV SCH (14:00)
[2018-07-14] MEDS: METOPROLOL TARTRATE 5MG/5ML VIAL IV SCH ×2 (15:24→19:34)
[2018-07-14] MEDS ORDERED: METOPROLOL TARTRATE 5MG/5ML VIAL IV NR (19:30)
[2018-07-14] MEDS: LEVETIRACETAM 750 MG in SODIUM CHLORIDE 0.9% 100 ML IV SCH (20:39)
[2018-07-14] MEDS: FAMOTIDINE 20MG/2ML VIAL IV SCH (20:40)
[2018-07-14] MEDS: ATORVASTATIN CALCIUM 10MG TABLET PO SCH (20:40)
[2018-07-14] MEDS: NITROGLYCERIN OINT 1GM/INCH UDPKT TD SCH (22:26)
[2018-07-15] VITALS: BP 174/78
[2018-07-15] MEDS: IPRATROPIUM/ALBUTEROL 0.5-3(2.5)MG/3ML NEB HHN SCH ×6 (00:10→21:39)
[2018-07-15] MEDS: METOCLOPRAMIDE HCL 10MG/2ML VIAL IV SCH ×5 (00:20→23:59)
[2018-07-15] MEDS: ENALAPRIL 2.5MG/2ML VIAL 2ML IV PRN ×2 (00:20→17:15)
[2018-07-15] MEDS: PIPERACILLIN/TAZ 3.375G PREMIX 50 ML IV SCH ×4 (03:08→19:59)
[2018-07-15] MEDS: METOPROLOL TARTRATE 5MG/5ML VIAL IV SCH ×4 (03:09→19:59)
[2018-07-15 04:00] VITALS: BP 152/64
[2018-07-15] MEDS: CLONIDINE 0.1MG TABLET PO SCH ×3 (06:02→21:05)
[2018-07-15] MEDS: NITROGLYCERIN OINT 1GM/INCH UDPKT TD SCH ×4 (06:02→23:59)
[2018-07-15 06:34] LABS: BASOPHILS % 0.2 % (0.0-2.0); EOSINOPHILS % 0.2 % (0.0-5.0); HEMATOCRIT. 31.5 % (42.0-52.0); HEMOGLOBIN. 10.8 g/dL (14.0-18.0); LYMPHOCYTES % 7.5 % (20.0-50.0); MEAN CORPUSCULAR HEMOGLOBIN 31.7 pg (28.0-32.0); MEAN CORPUSCULAR VOLUME 92.1 fL (80.0-94.0); MEAN PLATELET VOLUME 7.3 fl (7.4-10.4); NEUTROPHILS % 81.1 % (40.0-76.0); PLATELET 350 x1000/uL (130-400); RED BLOOD CELL COUNT 3.42 mill/uL (4.7-6.1); RED CELL DISTRIBUTION WIDTH 14.2 % (11.6-14.6)
[2018-07-15 06:40] LABS: CHLORIDE 115 mEq/L (98-107)
[2018-07-15] MEDS: INSULIN LISPRO 100 UNITS/ML SUBCUT SCH ×4 (07:07→21:08)
[2018-07-15] MEDS: HYDRALAZINE 20MG/ML VIAL IV PRN ×2 (07:08→18:42)
[2018-07-15] MEDS: BLOOD SUGAR DIAGNOSTIC STRIP TEST SCH ×4 (07:08→21:05)
[2018-07-15 08:00] VITALS: BP 178/72
[2018-07-15] MEDS: ZINC SULFATE 220 MG ( 50 ) CAPSULE GT SCH (08:12)
[2018-07-15] MEDS: MULTIVITAMINS,THER W-MINERALS TABLET GT SCH (08:12)
[2018-07-15] MEDS: ASCORBIC ACID 250 MG TABLET GT SCH ×2 (08:13→17:16)
[2018-07-15] MEDS ORDERED: METHYLPREDNISOLONE SOD SUCC 40 MG/ML VIAL IV SCH (09:00)
[2018-07-15] MEDS: LEVETIRACETAM 750 MG in SODIUM CHLORIDE 0.9% 100 ML IV SCH ×2 (09:29→21:05)
[2018-07-15] MEDS ORDERED: KCL 20MEQ/100ML PREMIX 100 ML IV SCH (10:00)
[2018-07-15] MEDS ORDERED: HYDRALAZINE HCL 50MG TABLET PO NR (11:30)
[2018-07-15] MEDS: DEXT 5%/0.45% NACL 1000ML 1,000 ML IV SCH (12:43)
[2018-07-15] MEDS: HYDRALAZINE HCL 50MG TABLET PO SCH ×2 (17:16→22:35)
[2018-07-15] MEDS ORDERED: LACTULOSE 20G/30ML UDC PO PRN (19:45)
[2018-07-15] MEDS ORDERED: LACTULOSE 20G/30ML UDC PO SCH (19:45)
[2018-07-15] MEDS ORDERED: BISACODYL 10MG SUPP PR NR (19:45)
[2018-07-15 20:00] VITALS: BP 183/84
[2018-07-15] MEDS: ATORVASTATIN CALCIUM 10MG TABLET PO SCH (21:05)
[2018-07-15] MEDS: FAMOTIDINE 20MG/2ML VIAL IV SCH (21:05)
[2018-07-16] VITALS: BP 187/84
[2018-07-16] MEDS: IPRATROPIUM/ALBUTEROL 0.5-3(2.5)MG/3ML NEB HHN SCH ×6 (00:55→21:23)
[2018-07-16] MEDS: PIPERACILLIN/TAZ 3.375G PREMIX 50 ML IV SCH ×4 (01:56→22:01)
[2018-07-16] MEDS: METOPROLOL TARTRATE 5MG/5ML VIAL IV SCH ×4 (01:56→20:42)
[2018-07-16 04:00] VITALS: BP 198/90
[2018-07-16] MEDS: ENALAPRIL 2.5MG/2ML VIAL 2ML IV PRN (04:37)
[2018-07-16] MEDS: CLONIDINE 0.1MG TABLET PO SCH ×3 (05:36→22:01)
[2018-07-16] MEDS: HYDRALAZINE HCL 50MG TABLET PO SCH (05:36)
[2018-07-16] MEDS: METOCLOPRAMIDE HCL 10MG/2ML VIAL IV SCH ×3 (05:36→20:22)
[2018-07-16] MEDS: NITROGLYCERIN OINT 1GM/INCH UDPKT TD SCH ×3 (05:37→20:22)
[2018-07-16] MEDS: BLOOD SUGAR DIAGNOSTIC STRIP TEST SCH ×4 (06:19→20:42)
[2018-07-16] MEDS: INSULIN LISPRO 100 UNITS/ML SUBCUT SCH ×4 (06:19→20:43)
[2018-07-16 07:07] LABS: BASOPHILS % 0.1 % (0.0-2.0); EOSINOPHILS % 0.8 % (0.0-5.0); HEMATOCRIT. 34.8 % (42.0-52.0); HEMOGLOBIN. 11.9 g/dL (14.0-18.0); LYMPHOCYTES % 8.4 % (20.0-50.0); MEAN CORPUSCULAR HEMOGLOBIN 31.5 pg (28.0-32.0); MEAN CORPUSCULAR VOLUME 92.6 fL (80.0-94.0); MEAN PLATELET VOLUME 7.4 fl (7.4-10.4); NEUTROPHILS % 80.7 % (40.0-76.0); PLATELET 405 x1000/uL (130-400); RED BLOOD CELL COUNT 3.76 mill/uL (4.7-6.1); RED CELL DISTRIBUTION WIDTH 14.4 % (11.6-14.6)
[2018-07-16 07:21] LABS: CHLORIDE 111 mEq/L (98-107)
[2018-07-16 08:00] VITALS: BP 163/85
[2018-07-16] MEDS: MULTIVITAMINS,THER W-MINERALS TABLET GT SCH (09:43)
[2018-07-16] MEDS: ZINC SULFATE 220 MG ( 50 ) CAPSULE GT SCH (09:43)
[2018-07-16] MEDS: ASCORBIC ACID 250 MG TABLET GT SCH ×2 (09:43→17:40)
[2018-07-16] MEDS: LEVETIRACETAM 750 MG in SODIUM CHLORIDE 0.9% 100 ML IV SCH ×2 (09:55→20:31)
[2018-07-16 12:25] VITALS: BP 140/73
[2018-07-16] MEDS ORDERED: LACTULOSE 20G/30ML UDC PO NR (14:30)
[2018-07-16 14:37] LABS: BG CARBOXYHEMOGLOBIN 0.3 % (0.5-1.5); BG DEOXYHEMOGLOBIN 3.8 % (0.0-5.0); BG HCO3 ACT 17.8 mmol/L (22.0-26.0); BG METHEMOGLOBIN 0.3 % (0.0-1.5); BG OXYGEN SATURATION 96.2 % (92.0-98.5); BG OXYHEMOGLOBIN 95.6 % (94.0-97.0); BG PCO2 23.9 mmHg (35.0-45.0); BG PO2 84.8 mmHg (75.0-100.0); BG SAMPLE SITE RIGHT BRACHIAL; BG TOTAL HEMOGLOBIN 11.6 g/dL (12.0-18.0); BG VENT MODE ROOM AIR
[2018-07-16] MEDS: HYDRALAZINE HCL 100MG TABLET PO SCH ×2 (14:55→22:01)
[2018-07-16 16:00] VITALS: BP 181/89
[2018-07-16] MEDS ORDERED: LACTULOSE 20G/30ML UDC PO PRN (16:45)
[2018-07-16] MEDS: ONDANSETRON HCL 4MG/2ML INJ IV PRN (17:41)
[2018-07-16] MEDS: ENOXAPARIN 40MG/0.4ML SYR SUBCUT SCH (18:00)
[2018-07-16 20:00] VITALS: BP 149/74
[2018-07-16] MEDS: ATORVASTATIN CALCIUM 10MG TABLET PO SCH (20:42)
[2018-07-16] MEDS: FAMOTIDINE 20MG/2ML VIAL IV SCH (20:42)
[2018-07-17] VITALS: BP 166/86
[2018-07-17] MEDS: METOCLOPRAMIDE HCL 10MG/2ML VIAL IV SCH ×4 (01:25→17:16)
[2018-07-17] MEDS: NITROGLYCERIN OINT 1GM/INCH UDPKT TD SCH ×4 (01:26→17:22)
[2018-07-17] MEDS: IPRATROPIUM/ALBUTEROL 0.5-3(2.5)MG/3ML NEB HHN SCH ×6 (01:54→21:10)
[2018-07-17] MEDS: ONDANSETRON HCL 4MG/2ML INJ IV PRN (02:31)
[2018-07-17] MEDS: PIPERACILLIN/TAZ 3.375G PREMIX 50 ML IV SCH ×4 (02:32→21:33)
[2018-07-17] MEDS: METOPROLOL TARTRATE 5MG/5ML VIAL IV SCH ×2 (02:32→08:35)
[2018-07-17 04:00] VITALS: BP 176/79
[2018-07-17] MEDS: DEXT 5%/0.45% NACL 1000ML 1,000 ML IV SCH (04:12)
[2018-07-17] MEDS: HYDRALAZINE HCL 100MG TABLET PO SCH ×3 (05:13→21:33)
[2018-07-17] MEDS: CLONIDINE 0.1MG TABLET PO SCH ×3 (05:13→21:33)
[2018-07-17] MEDS: INSULIN LISPRO 100 UNITS/ML SUBCUT SCH ×4 (05:49→21:00)
[2018-07-17] MEDS: BLOOD SUGAR DIAGNOSTIC STRIP TEST SCH ×4 (05:49→21:28)
[2018-07-17 07:17] LABS: HEMATOCRIT 35.9 % (42.0-52.0); HEMOGLOBIN 12.2 g/dL (14.0-18.0); MEAN CORPUSCULAR HEMOGLOBIN 31.4 pg (28.0-32.0); PLATELET 394 x1000/uL (130-400); RED CELL DISTRIBUTION WIDTH 14.2 % (11.6-14.6)
[2018-07-17 07:27] LABS: CHLORIDE 111 mEq/L (98-107)
[2018-07-17 08:00] VITALS: BP 162/74
[2018-07-17] MEDS: ZINC SULFATE 220 MG ( 50 ) CAPSULE GT SCH (08:25)
[2018-07-17] MEDS: MULTIVITAMINS,THER W-MINERALS TABLET GT SCH (08:25)
[2018-07-17] MEDS: ASCORBIC ACID 250 MG TABLET GT SCH ×2 (08:25→17:16)
[2018-07-17] MEDS: ENOXAPARIN 40MG/0.4ML SYR SUBCUT SCH (08:25)
[2018-07-17] MEDS: LEVETIRACETAM 750 MG in SODIUM CHLORIDE 0.9% 100 ML IV SCH ×2 (09:49→21:34)
[2018-07-17] MEDS: HYDRALAZINE 20MG/ML VIAL IV PRN (11:22)
[2018-07-17 12:23] LABS: BG BASE EXCESS -7.4 mmol/L (-2.0-2.0); BG CARBOXYHEMOGLOBIN 0.1 % (0.5-1.5); BG DEOXYHEMOGLOBIN 3.6 % (0.0-5.0); BG HCO3 ACT 14.4 mmol/L (22.0-26.0); BG METHEMOGLOBIN 0.3 % (0.0-1.5); BG OXYGEN SATURATION 96.4 % (92.0-98.5); BG PCO2 20.6 mmHg (35.0-45.0); BG PH 7.462 (7.350-7.450); BG PO2 87.8 mmHg (75.0-100.0); BG SAMPLE SITE RIGHT RADIAL; BG VENT MODE NASAL CANNULA
[2018-07-17] MEDS ORDERED: FUROSEMIDE 40MG/4ML VIAL IVP ONE (15:15)
[2018-07-17] MEDS ORDERED: POTASSIUM CHLORIDE 20MEQ TABLET SR PO ONE (15:15)
[2018-07-17 16:00] VITALS: BP 169/77
[2018-07-17 20:00] VITALS: BP 162/80
[2018-07-17] MEDS: METOPROLOL TARTRATE 50MG TABLET PO SCH (21:33)
[2018-07-17] MEDS: FAMOTIDINE 20MG/2ML VIAL IV SCH (21:33)
[2018-07-17] MEDS: ATORVASTATIN CALCIUM 10MG TABLET PO SCH (21:33)
[2018-07-17] MEDS: AMLODIPINE 5MG TABLET PO SCH (21:34)
[2018-07-18] VITALS: BP 138/77
[2018-07-18] MEDS: IPRATROPIUM/ALBUTEROL 0.5-3(2.5)MG/3ML NEB HHN SCH ×5 (00:47→20:34)
[2018-07-18] MEDS: PIPERACILLIN/TAZ 3.375G PREMIX 50 ML IV SCH ×4 (01:57→21:57)
[2018-07-18 04:00] VITALS: BP 155/80
[2018-07-18] MEDS: INSULIN LISPRO 100 UNITS/ML SUBCUT SCH ×4 (05:52→22:25)
[2018-07-18] MEDS: BLOOD SUGAR DIAGNOSTIC STRIP TEST SCH ×4 (05:52→21:00)
[2018-07-18] MEDS: HYDRALAZINE HCL 100MG TABLET PO SCH ×3 (06:10→22:19)
[2018-07-18] MEDS: CLONIDINE 0.1MG TABLET PO SCH ×3 (06:10→22:00)
[2018-07-18] MEDS: METOCLOPRAMIDE HCL 10MG/2ML VIAL IV SCH ×4 (06:10→18:33)
[2018-07-18] MEDS: NITROGLYCERIN OINT 1GM/INCH UDPKT TD SCH ×4 (06:14→18:32)
[2018-07-18 07:03] LABS: HEMOGLOBIN 12.3 g/dL (14.0-18.0); MEAN CORPUSCULAR HEMOGLOBIN 31.5 pg (28.0-32.0); MEAN CORPUSCULAR VOLUME 92.5 fL (80.0-94.0); PLATELET 371 x1000/uL (130-400); RED CELL DISTRIBUTION WIDTH 14.1 % (11.6-14.6)
[2018-07-18 07:50] LABS: CHLORIDE 111 mEq/L (98-107)
[2018-07-18 08:00] VITALS: BP 140/75
[2018-07-18] MEDS: ASCORBIC ACID 250 MG TABLET GT SCH ×2 (08:45→19:00)
[2018-07-18] MEDS: ZINC SULFATE 220 MG ( 50 ) CAPSULE GT SCH (08:45)
[2018-07-18] MEDS: MULTIVITAMINS,THER W-MINERALS TABLET GT SCH (08:45)
[2018-07-18] MEDS: METOPROLOL TARTRATE 50MG TABLET PO SCH ×3 (08:46→21:59)
[2018-07-18] MEDS: AMLODIPINE 5MG TABLET PO SCH ×2 (08:47→21:58)
[2018-07-18] MEDS: ENOXAPARIN 40MG/0.4ML SYR SUBCUT SCH (08:47)
[2018-07-18] MEDS: LEVETIRACETAM 750 MG in SODIUM CHLORIDE 0.9% 100 ML IV SCH ×2 (09:48→22:26)
[2018-07-18 10:38] LABS: BG BASE EXCESS -6.1 mmol/L (-2.0-2.0); BG CARBOXYHEMOGLOBIN 0.5 % (0.5-1.5); BG DEOXYHEMOGLOBIN 3.1 % (0.0-5.0); BG FRACTION INSPIRED OXYGEN 28; BG HCO3 ACT 15.7 mmol/L (22.0-26.0); BG METHEMOGLOBIN 0.1 % (0.0-1.5); BG OXYGEN SATURATION 96.9 % (92.0-98.5); BG OXYHEMOGLOBIN 96.3 % (94.0-97.0); BG PCO2 22.2 mmHg (35.0-45.0); BG PH 7.467 (7.350-7.450); BG PO2 92.5 mmHg (75.0-100.0); BG SAMPLE SITE RIGHT RADIAL; BG TOTAL HEMOGLOBIN 12.7 g/dL (12.0-18.0); BG VENT MODE NASAL CANNULA
[2018-07-18 12:00] VITALS: BP 140/71
[2018-07-18 20:00] VITALS: BP 144/66
[2018-07-18] MEDS: FAMOTIDINE 20MG/2ML VIAL IV SCH (21:57)
[2018-07-18] MEDS: ATORVASTATIN CALCIUM 10MG TABLET PO SCH (21:58)
[2018-07-18] MEDS: DEXT 5%/0.45% NACL 1000ML 1,000 ML IV SCH (22:08)
[2018-07-18 22:40] VITALS: BP 144/66
== END 2018-07-18 23:45 | DRG 981 ==
LOC: ER 15:12 → 5WST 19:06 → EDBD 19:06 → EDBEDREQTM 19:19 → EDBEDREQ 19:19 → EDBEDREQSVC 19:19 → SUPCPDRO 20:21 → ENRESERV 07-01 00:10 → 5EST 07-07 18:30 → 8WST 07-12 03:59
PROVIDERS: ADMIT Internal Medicine; ATTEND Internal Medicine
PROC: 4A00X4Z Measurement of Central Nervous Electrical Activity, External Approach (ICD-10-PCS; 2018-07-04)
PROC: 0DJ08ZZ Inspection of Upper Intestinal Tract, Via Natural or Artificial Opening Endoscopic (ICD-10-PCS; 2018-07-06)
PROC: 0DNB0ZZ Release Ileum, Open Approach (ICD-10-PCS; principal; 2018-07-07)
PROC: 0DHA0UZ Insertion of Feeding Device into Jejunum, Open Approach (ICD-10-PCS; 2018-07-07)
DX: I63.9 Cerebral infarction, unspecified (principal); J69.0 Pneumonitis due to inhalation of food and vomit; G93.41 Metabolic encephalopathy; N17.9 Acute kidney failure, unspecified; E87.3 Alkalosis; K56.7 Ileus, unspecified; E46 Unspecified protein-calorie malnutrition; E72.20 Disorder of urea cycle metabolism, unspecified; G93.40 Encephalopathy, unspecified; I47.1 Supraventricular tachycardia; I47.2 Ventricular tachycardia; G40.409 Other generalized epilepsy and epileptic syndromes, not intractable, without status epilepticus; I10 Essential (primary) hypertension; E78.5 Hyperlipidemia, unspecified; R62.7 Adult failure to thrive; I16.0 Hypertensive urgency; E11.621 Type 2 diabetes mellitus with foot ulcer; D64.9 Anemia, unspecified; E11.51 Type 2 diabetes mellitus with diabetic peripheral angiopathy without gangrene; E11.649 Type 2 diabetes mellitus with hypoglycemia without coma; E78.00 Pure hypercholesterolemia, unspecified; E87.70 Fluid overload, unspecified; E86.0 Dehydration; K66.0 Peritoneal adhesions (postprocedural) (postinfection); L89.020 Pressure ulcer of left elbow, unstageable; L89.010 Pressure ulcer of right elbow, unstageable; L89.110 Pressure ulcer of right upper back, unstageable; L97.529 Non-pressure chronic ulcer of other part of left foot with unspecified severity; F03.90 Unspecified dementia, unspecified severity, without behavioral disturbance, psychotic disturbance, mood disturbance, and anxiety; I27.20 Pulmonary hypertension, unspecified; I65.23 Occlusion and stenosis of bilateral carotid arteries; K29.70 Gastritis, unspecified, without bleeding; N40.0 Benign prostatic hyperplasia without lower urinary tract symptoms; R13.12 Dysphagia, oropharyngeal phase; R47.02 Dysphasia; Z79.4 Long term (current) use of insulin; Z79.899 Other long term (current) drug therapy; Z90.3 Acquired absence of stomach [part of]; I69.30 Unspecified sequelae of cerebral infarction; Z68.24 Body mass index [BMI] 24.0-24.9, adult; Z78.1 Physical restraint status
CPT/HCPCS: 36415; 36600; 70496; 70498; 70551; 71045; 74018; 74176; 76700; 80048; 80061; 80305; 82140; 82375; 82550; 82607; 82805; 82962; 83036; 83721; 83735; 84134; 84153; 84443; 84484; 85027; 86592; 92610; 93005; 93306; 93970; 94640; 96361; 96365; 96366; 97110; 97162; 97166; 97530; 97535; 99285; C1758; C1893; C9113; G0482; J0360; J0690; J1160; J1650; J1815; J1885; J1940; J1953; J1956; J2060; J2250; J2270; J2405; J2543; J2704; J2710; J2765; J2920; J3010; J3480; J3490; J7042; J7050; J7620; Q9967; G0103